=== PATIENT | female | born 1975 | race Caucasian/White ===

== ENCOUNTER 2016-08-06 19:35 | Emergency (ER) | payer OTHER ==
[~2016-08-06] VITALS: Ht 161.3 cm; Wt 140.6 kg
[2016-08-06 19:42] VITALS: BP 134/89
[2016-08-06] MEDS ORDERED: CYCLOBENZAPRINE5 M2 PO (20:54)
[2016-08-06] MEDS ORDERED: NAPROSYN500 M1 PO (20:54)
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
== END 2016-08-06 21:04 ==
LOC: ERH 19:35
DX: M54.9 Dorsalgia, unspecified (principal)